=== PATIENT | female | born 2000 | race Caucasian/White ===

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

== ENCOUNTER 2022-06-26 16:38 | Outpatient (REF) | payer OTHER, MEDICAID, SELFPAY ==
[2022-06-27 10:12] LABS: Hepatitis C Ab w Rflx HCV PCR Negative (Negative)
[2022-06-27 10:54] LABS: HIV-1/2 Ag & Ab Screen Negative (Negative)
[2022-06-27 11:06] LABS: Syphilis Serology (RPR) Negative (Negative)
[2022-06-27 13:56] LABS: Chlamydia Result Negative (Negative); GC Result Negative (Negative)
== END 2022-06-26 16:39 | disposition home or self-care (01) ==
LOC: NCHCN 16:38
PROVIDERS: Visit Provider Nurse Practitioner Family
DX: Z11.3 Encounter for screening for infections with a predominantly sexual mode of transmission (principal); Z11.4 Encounter for screening for human immunodeficiency virus [HIV]; Z11.59 Encounter for screening for other viral diseases
CPT/HCPCS: 86803; 87389; 87491; 87591; 86592

== ENCOUNTER 2022-10-23 20:54 | Outpatient (REF) | payer OTHER, SELFPAY ==
[2022-10-25 13:43] LABS: Chlamydia Result Negative (Negative); GC Result Negative (Negative)
== END 2022-10-23 20:55 | disposition home or self-care (01) ==
LOC: LBN 20:54
PROVIDERS: Visit Provider Nurse Practitioner Family
DX: Z11.3 Encounter for screening for infections with a predominantly sexual mode of transmission (principal); N76.0 Acute vaginitis
CPT/HCPCS: 87491; 87591; 87480; 87510; 87660

== ENCOUNTER 2023-10-23 16:46 | Outpatient (REF) | payer OTHER, SELFPAY ==
[2023-10-23 20:03] LABS: Abs Immature Grans 0.02 10^3/uL (0.0-0.06); Absolute Basophil Count 0.02 10^3/uL (0.0-0.2); Absolute Eosinophil Count 0.04 10^3/uL (0.0-0.7); Absolute Lymphocyte Count 2.03 10^3/uL (1.2-3.4); Absolute Monocyte Count 0.48 10^3/uL (0.1-0.8); Absolute Neutrophil Count 4.44 10^3/uL (1.2-6.7); Basophils % 0.3 %; Eosinophils % 0.6 %; HCT 36.5 % (36.0-46.0); HGB 12.1 g/dL (11.2-15.7); Immature Grans % 0.3 %; Lymphocytes % 28.9 %; MCH 30.2 pg (27.0-33.0); MCHC 33.2 % (32.0-36.0); MCV 91 fL (80-95); Monocytes % 6.8 %; Neutrophils % 63.1 %; Platelet Count 171 10^3/uL (130-400); RBC 4.01 10^6/uL (3.93-5.22); RDW 12.4 % (11.7-14.6); RDW-SD 41.3 fL; WBC 7.03 10^3/uL (4.4-10.8)
[2023-10-23 20:37] LABS: ALT 25 U/L (14-59); AST 20 U/L (15-37); Albumin 4.3 g/dL (3.4-5.0); Alkaline Phosphatase 74 U/L (46-116); Anion Gap 8.7 mmol/L (3-11); BUN 10 mg/dL (7-18); Bilirubin, Total 1.09 mg/dL (0.2-1.0); CO2 26.3 mmol/L (21.0-32.0); CREATININE 0.9 mg/dL (0.55-1.02); Calcium 9.3 mg/dL (8.5-10.1); Chloride 105 mmol/L (98-107); Estimated GFR 93.28 (mL/min/1.73m2); FREE T4 1.22 ng/dL (0.76-1.46); Glucose 78 mg/dL (74-106); Potassium 4.1 mmol/L (3.5-5.1); Sodium 140 mmol/L (136-145); TSH 0.68 uIU/Ml (0.36-3.74)
== END 2023-10-23 16:47 | disposition home or self-care (01) ==
LOC: NCHCN 16:46
PROVIDERS: Visit Provider Nurse Practitioner Family
DX: R63.4 Abnormal weight loss (principal)
CPT/HCPCS: 80053; 84439; 84443; 85025

== ENCOUNTER 2024-02-04 18:15 | Outpatient (REF) | payer OTHER, SELFPAY ==
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
--- OUTSIDE RECORDS SUMMARY | 2024-02-04 18:16 | XMS_ITS | Referral Summary ---
Author Organization [facility] Address [address] [place] [address] Care Team Providers Care Order Picker Name Role Phone Vitaliy Fernandez DNP Primary Care Provider [phone] Encounters Date Type Department Care Team Description 01/07/2024 Refill [facility] - Main [place] [address] [place] [address] Kodi José MD Medications Refill from Last 3 Months Allergies No known active allergies Medications Medication Sig Dispensed Refills Start Date End Date Status FLUoxetine (PROZAC) 40 mg capsule Take 40 mg by mouth daily. Active UNABLE TO FIND Take 1 Tab by mouth daily. Med Name: control pills Active etonogestreL (NEXPLANON) 68 mg subdermal implant Insert 1 Each subdermally Once. Active buPROPion (WELLBUTRIN) 75 mg tablet Take 1 Tablet by mouth 3 times daily. Active lisdexamfetamine (VYVANSE) 10 mg capsule Take 1 Capsule by mouth daily. Daily Max: 10 mg Active latanoprost (XALATAN) 0.005 % ophthalmic solutionIndicatio ns:Secondary open-angle glaucoma of right eye INSTILL ONE DROP INTO THE RIGHT EYE AT BEDTIME( SHOULD LAST 40 DAYS) 2.5 mL 5 01/08/2024 Active dorzolamide-timol ol (COSOPT) 22.3-6.8 mg/mL ophthalmic solution INSTILL ONE DROP INTO THE RIGHT EYE TWO TIMES A DAY 10 mL 9 01/08/2024 Active brimonidine (ALPHAGAN) 0.2 % ophthalmic solution INSTILL ONE DROP INTO THE RIGHT EYE TWO TIMES A DAY 5 mL 6 01/08/2024 Active dorzolamide-timol ol (COSOPT) 22.3-6.8 mg/mL ophthalmic solution INSTILL ONE DROP INTO THE RIGHT EYE TWO TIMES A DAY 10 mL 9 03/28/2023 01/07/20 24 Discontinued(Reo rder) latanoprost (XALATAN) 0.005 % ophthalmic solutionIndicatio ns:Secondary open-angle glaucoma of right eye INSTILL ONE DROP INTO THE RIGHT EYE AT BEDTIME( SHOULD LAST 40 DAYS) 2.5 mL 5 03/28/2023 01/07/20 24 Discontinued(Reo rder) brimonidine (ALPHAGAN) 0.2 % ophthalmic solution INSTILL ONE DROP INTO THE RIGHT EYE TWO TIMES A DAY 5 mL 6 03/28/2023 01/07/20 24 Discontinued(Reo rder) Miscellaneous Medication - See Admin Instructions Place 1 Drop into both eyes 2 times daily. 1 Each 11 04/19/2023 01/07/20 24 Discontinued Social History Tobacco Use Types Packs/Day Years Used Date Smoking Tobacco: Never Smokeless Tobacco: Never Interpersonal Safety Answer Date Record ed Physically Hurt Never 11/16/2019 Verbally Threaten Not on file 11/16/2019 Sex and Gender Information Value Date Recorded Sex Assigned at Not on file Gender Identity Female 12/02/2020 13:22 EDT Sexual Orientation Not on file Plan of Treatment Upcoming Encounters Date Type Department Care Team (Late st Contact Info) Description 04/22/2024 13:15 EST Office Visit [facility] - [address] [id number] Abdulkadir Rhoades MD [address] [place] [address], [address] [place] [address] Procedures Procedure Name Priority Date/Time Associated Diagnosis Comments HEPATITIS C AB W REFLEX TO HCV RNA BY PCR Routine 06/26/2022 14:00 EDT from Last 3 Months or Most Recently Relevant to Health Maintenance Results * HEPATITIS C AB W REFLEX TO HCV RNA BY PCR (06/26/2022 14:00 EDT) Hep C Antibody Negative Negative 06/27/2022 10:08 EDT [facility] Blood VENOUS BLOOD / Unknown 06/26/2022 14:00 EDT 06/26/2022 20:57 EDT Provider Outr Resulting Lab CHEMISTRY & BLOOD GAS ORDERABLES [facility] [address] [place] [address] from Last 3 Months or Most Recently Relevant to Health Maintenance Care Teams Order Picker Relationship Specialty Start Date End Date Vitaliy Fernandez, [facility] [address] [place] [address] [place] [id number] PCP - General 12/02/20
--- OUTSIDE RECORDS SUMMARY | 2024-02-04 18:16 | XMS_ITS | Encounter Summary ---
Author Organization [facility] Address [address] [place] [address] Care Team Providers Care Senior Cytogenetic Technologist Name Role Phone Vitaliy Fernandez DNP Primary Care Provider [phone] Reason for Visit * Reason Onset Date Comments Medications Refill 01/07/2024 Encounter Details Date Type Department Care Team (Late st Contact Info) Description 01/07/2024 Refill [facility] Ophthalmology - [address] [phone] Kodi José MD 111 [facility], [address] [place] [address] Medications Refill Social History Tobacco Use Types Packs/Day Years [...] Dispensed Refills Start Date End Da te brimonidine (ALPHAGAN) 0.2 % ophthalmic solution INSTILL ONE DROP INTO THE RIGHT EYE TWO TIMES A DAY 5 mL 6 01/08/2024 dorzolamide-timolol (COSOPT) 22.3-6.8 mg/mL ophthalmic solution INSTILL ONE DROP INTO THE RIGHT EYE TWO TIMES A DAY 10 mL 9 01/08/2024 latanoprost (XALATAN) 0.005 % ophthalmic solutionIndications:Second paty open-angle glaucoma of right eye INSTILL ONE DROP INTO THE RIGHT EYE AT BEDTIME( SHOULD LAST 40 DAYS) 2.5 mL 5 01/08/2024 documented in this encounter Miscellaneous Notes * Telephone Encounter - DavisFarzana - 01/07/2024 3102 EDT Medication Refill Medication(s) Requested: latanoprost, dorzolamide, brimonidine. Pt wants to go back tot he 3 separate drops rather than the combined drop (bimatoprost) with is more expensive for her. Pharmacy: [facility] Is patient out of medication? No 30 day supply/ 90 day supply: 30 Follow up appointment: 04/22/23 Please remind the patient that it can take 24-48 hours for the med to be refilled, and to call the pharmacy to make sure the refill is available before driving there. documented in this encounter Plan of Treatment Upcoming Encounters Date Type Department Care Team (Late st Contact Info) Description 04/22/2024 13:15 EST Office Visit [facility] Ophthalmology - [address] [address] Abdulkadir Rhoades MD [address] [facility], [address] [place] [address] documented as of this encounter Visit Diagnoses Diagnosis Secondary open-angle glaucoma of right eye- Primary documented in this encounter Discontinued Medications Medication Sig Discontinue Reason Start Date End Da te Miscellaneous Medication - See Admin Instructions Place 1 Drop into both eyes 2 times daily. 04/19/2023 01/07/2024 dorzolamide-timolol (COSOPT) 22.3-6.8 mg/mL ophthalmic solution INSTILL ONE DROP INTO THE RIGHT EYE TWO TIMES A DAY Reorder 03/28/2023 01/07/2024 latanoprost (XALATAN) 0.005 % ophthalmic solutionIndications:Gurdeep durham open-angle glaucoma of right eye INSTILL ONE DROP INTO THE RIGHT EYE AT BEDTIME( SHOULD LAST 40 DAYS) Reorder 03/28/2023 01/07/2024 brimonidine (ALPHAGAN) 0.2 % ophthalmic solution INSTILL ONE DROP INTO THE RIGHT EYE TWO TIMES A DAY Reorder 03/28/2023 01/07/2024 documented as of this encounter Care Teams Senior Cytogenetic Technologist Relationship Specialty Start Date End Date Vitaliy Fernandez, [facility] [address] [place] [address] [place] [address] PCP - General 12/02/20 documented as of this encounter
--- OUTSIDE RECORDS SUMMARY | 2024-02-04 18:16 | XMS_ITS | Encounter Summary ---
Author Organization [facility] Address [address] [place] [address] Care Team Providers Care Dog Daycare Provider Name Role Phone Vitaliy Fernandez DNP Primary Care Provider [phone] Reason for Visit * Reason Onset Date Comments Medications Refill 04/10/2023 Encounter Details Date Type Department Care Team (Late st Contact Info) Description 04/10/2023 Refill [facility] Ophthalmology - [address] [phone] Kodi José MD 111 [facility], [address] [place] [address] Medications Refill Social History Tobacco [...] Dispensed Refills Start Date End Da te Miscellaneous Medication - See Admin Instructions Place 1 Drop into both eyes 2 times daily. 1 Each 04/19/2023 01/07/2024 documented in this encounter Miscellaneous Notes * Telephone Encounter - Quang Desir RN - 04/17/2023 1147 EST Per HAKEEM, this is fine. Call pharm. Vinod Desir RN 04/17/2023 11:49 * Telephone Encounter - Radha Nieto - 04/16/2023 0914 EST Pharmacy called to let us know they switched latanoprost to bimatoprost last year. They would like Dr José's permission to fill the compound with this ingredient. They will be [facility]ing a form [facility] and ask for the pharmacist * Telephone Encounter - Alcon Nolen RN - 04/10/[address] José to review. Alcon Nolen RN 04/10/2023 10:09 * Telephone Encounter - Farzana Cannon - 04/10/2023 0902 EST We prescribed a timolol/brimonidine/dorzolamide/latanoprost from [facility], but they don't make itwith latanoprost any more, they use bimatoprost 0.01% instead. Is this ok to make this change? documented in this encounter Plan of Treatment Upcoming Encounters Date Type Department Care Team (Late st Contact Info) Description 04/22/2024 13:15 EST Office Visit [facility] Ophthalmology - [facility] [address] [place] [address] Abdulkadir Rhoades MD [address] [facility], [address] [place] [address] documented as of this encounter Visit Diagnoses Not on filedocumented in this encounter Discontinued Medications Medication Sig Discontinue Reason Start Date End Da te timolo/brimon/dorzo/latan op/PF ([id number]-LA TANOPRO,PF,) 0.5 %-0.15 %- 2 %-0.005 % ophthalmic drops 1 drop to both eyes 2 x daily. 04/05/2023 04/19/2023 documented as of this encounter Care Teams Dog Daycare Provider Relationship Specialty Start Date End Date Vitaliy Fernandez, [facility] [address] [place] [id number] PCP - General 12/02/20 documented as of this encounter
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
--- OUTSIDE RECORDS SUMMARY | 2024-02-04 18:17 | XMS_ITS | Encounter Summary ---
Author Organization [facility] Address [address] [place] [address] Care Team Providers Care Rolloff Truck Driver Name Role Phone Vitaliy Fernandez DNP Primary Care Provider [phone] Encounter Details Date Type Department Care Team (Late st Contact Info) Description 06/26/2022 Lab Requisition [facility] Pathology & Laboratory Medicine - [address] [address] Outr Resulting Lab, Provider Social History Tobacco Use Types Packs/Day Years Used Date Smoking Tobacco: Never Smokeless Tobacco: Never Interpersonal Safety Answer Date Record ed Physically Hurt Never 11/16/2019 Verbally Threaten Not on file 11/16/2019 Sex and Gender Information Value Date Recorded Sex Assigned at Not on file Gender Identity Female 12/02/2020 13:22 EDT Sexual Orientation Not on file documented as of this encounter Plan of Treatment Upcoming Encounters Date Type Department Care Team (Late st Contact Info) Description 04/22/2024 13:15 EST Office Visit [facility] Ophthalmology - [address] [address] Abdulkadir Rhoades MD [address] [facility], [address] [place] [address] documented as of this encounter Procedures Procedure Name Priority Date/Time Associated Diagnosis Comments SYPHILIS SEROLOGY Routine 06/26/2022 14: 00 EDT HEPATITIS C AB W REFLEX TO HCV RNA BY PCR Routine 06/26/2022 14:00 EDT documented in this encounter Results * SYPHILIS SEROLOGY (06/26/2022 14:00 EDT) Syphilis Serology Negative Negative 06/27/2022 11:01 EDT [facility] Blood VENOUS BLOOD / Unknown 06/26/2022 14:00 EDT 06/26/2022 20:57 EDT Provider Outr Resulting Lab IMMUNOLOGY A ND SEROLOGY ORDERABLES Performing Organization Address [facility]/ZIP Co de Phone Number [facility] [address] [place] [address] * HEPATITIS C AB W REFLEX TO HCV RNA BY PCR (06/26/2022 14:00 EDT) Hep C Antibody Negative Negative 06/27/2022 10:08 EDT [facility] Blood VENOUS BLOOD / Unknown 06/26/2022 14:00 EDT 06/26/2022 20:57 EDT Provider Outr Resulting Lab CHEMISTRY & BLOOD GAS ORDERABLES Performing Organization Address City/[facility]/ZIP Co de Phone Number [facility] [address] [place] [address] documented in this encounter Visit Diagnoses Not on filedocumented in this encounter Care Teams Rolloff Truck Driver Relationship Specialty Start Date End Date Vitaliy Fernandez, [facility] [place] [address] PCP - General 12/02/20 documented as of this encounter
--- OUTSIDE RECORDS SUMMARY | 2024-02-04 18:17 | XMS_ITS | Encounter Summary ---
Author Organization [facility] Address [address] [place] [address] Care Team Providers Care Chenille Machine Operator Name Role Phone Vitaliy Fernandez DNP Primary Care Provider [phone] [phone] Reason for Visit * Reason Onset Date Comments Medications Refill 12/02/2020 Encounter Details Date Type Department Care Team (Late st Contact Info) Description 12/02/2020 Refill [facility] Ophthalmology - [address] [phone] Kodi José MD [address] [facility], [address] [place] [address] Medications Refill Social History Tobacco [...] Dispensed Refills Start Date End Da te latanoprost (XALATAN) 0.005 % ophthalmic solutionIndications:Second paty open-angle glaucoma of right eye Place 1 Drop into the right eye at bedtime. 1 Bottle 11 12/02/2020 05/26/2021 documented in this encounter Miscellaneous Notes * Telephone Encounter - Maribell Dc MA - 12/02/2020 1314 EDT Doctor: Kodi José MD Requested Medication(s): latanoprost Last appointment date: 05.30.20 Last appointment note regarding medication:latanoprost OD QHS Next appointment date: 01.11.21 * Telephone Encounter - Aime Patela - 12/02/2020 1306 EDT Medication Refill Medication(s) Requested: latanoprost (XALATAN) 0.005 % ophthalmic solution Pharmacy: [facility] Is patient out of medication? Yes 30 day supply/ 90 day supply: 30 Follow up appointment: Yes Please remind the patient that it can take 24-48 hours for the med to be refilled, and to call the pharmacy to make sure the refill is available before driving there. documented in this encounter Plan of Treatment Upcoming Encounters Date Type Department Care Team (Late st Contact Info) Description 04/22/2024 13:15 EST Office Visit [facility] Ophthalmology - [address] [address] Abdulkadir Rhoades MD [address] [facility], [address] [place] [address] documented as of this encounter Visit Diagnoses Diagnosis Secondary open-angle glaucoma of right eye- Primary documented in this encounter Discontinued Medications Medication Sig Discontinue Reason Start Date End Da te latanoprost (XALATAN) 0.005 % ophthalmic solutionIndications:Gurdeep durham open-angle glaucoma of right eye Place 1 Drop into the right eye at bedtime. Reorder 09/18/2019 12/02/2020 documented as of this encounter Care Teams Chenille Machine Operator Relationship Specialty Start Date End Date Vitaliy Fernandez, DNP [facility] [place] [address] PCP - General 12/02/20 documented as of this encounter
--- OUTSIDE RECORDS SUMMARY | 2024-02-04 18:17 | XMS_ITS | Encounter Summary ---
Author Organization [facility] Address [address] [place] [address] Care Team Providers Care Replenisher Name Role Phone None, Provider Primary Care Provider Unavailabl e Reason for Visit * Reason Comments Other Encounter Details Date Type Department Care Team (Late st Contact Info) Description 01/01/2020 Refill [facility]mology - [address] [address] Kodi José MD [address] [place] [address], [address] [place] [phone] Other Social History Tobacco Use Types Packs/Day Years [...] Dispensed Refills Start Date End Da te dorzolamide-timoloL (COSOPT) 22.3-6.8 mg/mL ophthalmic solution PLACE 1 DROP INTO THE RIGHT EYE TWICE DAILY 20 mL 3 01/01/2020 01/02/2021 documented in this encounter Miscellaneous Notes * Telephone Encounter - Maribell Dc MA - 01/01/2020 0823 EDT Doctor: Kodi José MD Requested Medication(s): cosopt Last appointment date: 09.18.19 Last appointment note regarding medication:dorz-timolol OD BID Next appointment date: overdue (nov 2019) documented in this encounter Plan of Treatment Upcoming Encounters Date Type Department Care Team (Late st Contact Info) Description 04/22/2024 13:15 EST Office Visit [facility] Ophthalmology - [address] [phone] Abdulkadir Rhoades MD [address] [place] [address], [address] [place] [address] documented as of this encounter Visit Diagnoses Not on filedocumented in this encounter Discontinued Medications Medication Sig Discontinue Reason Start Date End Da te dorzolamide-timoloL (COSOPT) 22.3-6.8 mg/mL ophthalmic solution Place 1 Drop into the right eye 2 times daily. 09/10/2019 01/01/2020 documented as of this encounter Care Teams Replenisher Relationship Specialty Start Date End Date None, Provider PCP - General 01/16/19 12/01/20 documented as of this encounter
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
--- OUTSIDE RECORDS SUMMARY | 2024-02-04 18:17 | XMS_ITS | Encounter Summary ---
Author Organization [facility] Address [address] [place] [address] Care Team Providers Care Roller Print Tender Name Role Phone Vitaliy Fernandez DNP Primary Care Provider [phone] Reason for Visit * Reason Comments Other Encounter Details Date Type Department Care Team (Late st Contact Info) Description 01/02/2021 Refill [facility] Ophthalmology - [address] [phone] Kodi José MD [address] [facility] [place], [address] [place] [address] Other Social History Tobacco Use Types Packs/Day [...] Dispensed Refills Start Date End Da te dorzolamide-timolol (COSOPT) 22.3-6.8 mg/mL ophthalmic solution INSTILL ONE DROP INTO THE RIGHT EYE TWO TIMES A DAY 10 mL 9 01/02/2021 01/04/2022 documented in this encounter Miscellaneous Notes * Telephone Encounter - Dao Maribell, MA - 01/02/2021 1343 EDT Doctor: Kodi José MD Requested Medication(s): cosopt Last appointment date: 05.30.20 Last appointment note regarding medication:dorz-timolol OD BID Next appointment date: 01.11.21 documented in this encounter Plan of Treatment Upcoming Encounters Date Type Department Care Team (Late st Contact Info) Description 04/22/2024 13:15 EST Office Visit [facility] Ophthalmology - [address] [phone] Abdulkadir Rhoades MD [address] [facility] [place], [address] [place] [phone] documented as of this encounter Visit Diagnoses Not on filedocumented in this encounter Discontinued Medications Medication Sig Discontinue Reason Start Date End Da te dorzolamide-timoloL (COSOPT) 22.3-6.8 mg/mL ophthalmic solution PLACE 1 DROP INTO THE RIGHT EYE TWICE DAILY 01/01/2020 01/02/2021 documented as of this encounter Care Teams Roller Print Tender Relationship Specialty Start Date End Date Vitaliy Fernandez, [place] [phone] PCP - General 12/02/20 documented as of this encounter
--- OUTSIDE RECORDS SUMMARY | 2024-02-04 18:17 | XMS_ITS | Encounter Summary ---
Author Organization [facility] Address [address] [place] [address] Care Team Providers Care Fur Stylist Name Role Phone Vitaliy Fernandez DNP Primary Care Provider [phone] Reason for Visit * Reason Onset Date Comments Medications Refill 01/16/2023 Encounter Details Date Type Department Care Team (Late st Contact Info) Description 01/16/2023 Refill [facility] Ophthalmology - [address] [phone] Kodi José MD [address] [facility], [address] [place] [address] Medications Refill Social History Tobacco [...] TWO TIMES A DAY 10 mL 9 01/16/2023 03/27/2023 documented in this encounter Miscellaneous Notes * Telephone Encounter - Quang Desir RN - 01/16/2023 1213 EDT Doctor: Kodi José MD Requested Medication(s): Dorzo-[place] Last appointment date: 07/26/2021 Last appointment note regarding medication: controlled on rx, again emphasized need for reliable rx-- F/U 6 M: IOP, HVF 24-2 FAST OU, OCT NFL OU. Drops: brimonidine OD BID, dorz-timolol OD BID, latanoprost OD QHS Next appointment date: 04/05/2023 Vinod Desir RN 01/16/2023 12:16 documented in this encounter Plan of Treatment Upcoming Encounters Date Type Department Care Team (Late st Contact Info) Description 04/22/2024 13:15 EST Office Visit [facility] Ophthalmology - [address] [phone] Abdulkadir Rhoades MD [address] [facility], [address] [place] [address] documented as of this encounter Visit Diagnoses Not on filedocumented in this encounter Discontinued Medications Medication Sig Discontinue Reason Start Date End Da te dorzolamide-timolol (COSOPT) 22.3-6.8 mg/mL ophthalmic solution INSTILL ONE DROP INTO THE RIGHT EYE TWO TIMES A DAY Reorder 01/04/2022 01/16/2023 documented as of this encounter Care Teams Fur Stylist Relationship Specialty Start Date End Date Vitaliy Fernandez, HYUN [facility] [place] [phone] PCP - General 12/02/20 documented as of this encounter
--- OUTSIDE RECORDS SUMMARY | 2024-02-04 18:17 | XMS_ITS | Encounter Summary ---
Author Organization [facility] Address [address] [place] [address] Care Team Providers Care Skip Load Driver Name Role Phone Vitaliy Fernandez DNP Primary Care Provider [phone] [phone] Reason for Visit * Reason Comments Other Encounter Details Date Type Department Care Team (Late st Contact Info) Description 07/25/2021 Refill [facility] Ophthalmology - [address] [phone] Kodi José MD 111 [facility], [address] [place] [address] Other Social History Tobacco Use [...] TWO TIMES A DAY 5 mL 6 07/26/2021 09/24/2022 documented in this encounter Miscellaneous Notes * Telephone Encounter - Alcon Nolen RN - 07/25/2021 1341 EDT Doctor: Kodi José MD Requested Medication(s): brimonidine Last appointment date: 05/26/2021 Last appointment note regarding medication:'brimonidine OD BID,' Next appointment date: 07/26/2021 Alcon Mcallister RN 07/25/2021 13:42 documented in this encounter Plan of Treatment Upcoming Encounters Date Type Department Care Team (Late st Contact Info) Description 04/22/2024 13:15 EST Office Visit [facility] Ophthalmology - [address] [phone] Abdulkadir Rhoades MD [address] [facility], [address] [place] [phone] documented as of this encounter Visit Diagnoses Not on filedocumented in this encounter Discontinued Medications Medication Sig Discontinue Reason Start Date End Da te brimonidine (ALPHAGAN) 0.2 % ophthalmic solution Place 1 Drop into the right eye 2 times daily. 05/30/2020 07/26/2021 documented as of this encounter Care Teams Skip Load Driver Relationship Specialty Start Date End Date Vitaliy Fernandez, [facility] [address] [place] [address] PCP - General 12/02/20 documented as of this encounter
--- OUTSIDE RECORDS SUMMARY | 2024-02-04 18:17 | XMS_ITS | Encounter Summary ---
Author Organization [facility] Address [address] [place] [address] Care Team Providers Care International Accountant Name Role Phone None, Provider Primary Care Provider Unavailabl e Reason for Visit * Reason Onset Date Comments Medications Refill 06/18/2019 Encounter Details Date Type Department Care Team (Late st Contact Info) Description 06/18/2019 Refill [facility] Ophthalmology - [address] [address] Kodi José MD [address] [place] [address], [address] [place] [phone] Medications Refill Social History Tobacco Use Types Packs/Day Years Used Date Smoking Tobacco: Never Smokeless Tobacco: Never Sex and Gender Information Value Date Recorded Sex Assigned at Not on file Gender Identity Female 12/02/2020 13:22 EDT Sexual Orientation Not on file documented as of this encounter Ordered Prescriptions Prescription Sig Dispensed Refills Start Date End Da te latanoprost (XALATAN) 0.005 % ophthalmic solution Place 1 Drop into the right eye at bedtime. 1 Bottle 6 06/18/2019 09/18/2019 dorzolamide-timoloL (COSOPT) 22.3-6.8 mg/mL ophthalmic solution Place 1 Drop into the right eye 2 times daily. 1 Bottle 5 06/18/2019 09/10/2019 documented in this encounter Miscellaneous Notes * Telephone Encounter - Galileo Deal - 06/18/2019 0835 EST dorzolamide-timolol (COSOPT) 22.3-6.8 mg/mL ophthalmic solution latanoprost (XALATAN) 0.005 % ophthalmic solution Medication Refill Medication(s) Requested: Pharmacy: [facility] in [facility] Is patient out of medication? Almost 30 day supply/ 90 day supply: 30 Follow up appointment: Cannot make an apt due to scheduling conflicts. Mother will call back when able to. Please remind the patient that it can take 24-48 hours for the med to be refilled, and to call the pharmacy to make sure the refill is available before driving there. documented in this encounter Plan of Treatment Upcoming Encounters Date Type Department Care Team (Late st Contact Info) Description 04/22/2024 13:15 EST Office Visit [facility] Ophthalmology - [address] [address] Abdulkadir Rhoades MD [address] [facility], [address] [place] [address] documented as of this encounter Visit Diagnoses Not on filedocumented in this encounter Discontinued Medications Medication Sig Discontinue Reason Start Date End Da te dorzolamide-timolol (COSOPT) 22.3-6.8 mg/mL ophthalmic solution Place 1 Drop into the right eye 2 times daily. Reorder 04/23/2019 06/18/2019 latanoprost (XALATAN) 0.005 % ophthalmic solution Place 1 Drop into the right eye at bedtime. Reorder 02/13/2019 06/18/2019 documented as of this encounter Care Teams International Accountant Relationship Specialty Start Date End Date None, Provider PCP - General 01/16/19 12/01/20 documented as of this encounter
--- OUTSIDE RECORDS SUMMARY | 2024-02-04 18:17 | XMS_ITS | Encounter Summary ---
Author Organization [facility] Address [address] [place] [address] Care Team Providers Care Apple Solutions Consultant Name Role Phone None, Provider Primary Care Provider Unavailabl e Reason for Visit * Reason Onset Date Comments Medications Refill 04/22/2019 Medications Refill 04/23/2019 Encounter Details Date Type Department Care Team (Late st Contact Info) Description 04/22/2019 Refill [facility] Ophthalmology - [address] [phone] Kodi José MD [address] [facility], [address] [place] [address] Medications Refill; Medications Refill Social History Tobacco Use Types [...] eye 2 times daily. 1 Bottle 5 04/23/2019 06/18/2019 documented in this encounter Miscellaneous Notes * Telephone Encounter - Alcon Mcallister RN - 04/23/2019 0957 EST Called [facility]. They had received it e-scribe. They will take a signed rx through fax. This was done. Transmission okay. Alcon Mcallister RN 04/23/2019 9:58 * Telephone Encounter - Alcon Mcallister RN - 04/23/2019 0713 EST Doctor: Kodi José MD Requested Medication(s): cosopt Last appointment date: 03/09/19 Last appointment note regarding medication:'dorz-timolol OD BID' Next appointment date: June 2019 Alcon Mcallister RN 04/23/2019 7:13 * Telephone Encounter - Amanda Lyons - 04/22/2019 1520 EST Patient is up at school in [place] but doesn't have appt set up yet and is running low on drops Medication Refill Medication(s) Requested: COPSOPT Pharmacy: [facility] Is patient out of medication? No 30 day supply/ 90 day supply: 30 Follow up appointment: Dr José referred her to Dr Upton in [place] where she goes to school Please remind the patient that it can take 24-48 hours for the med to be refilled, and to call the pharmacy to make sure the refill is available before driving there. documented in this encounter Plan of Treatment Upcoming Encounters Date Type Department Care Team (Late st Contact Info) Description 04/22/2024 13:15 EST Office Visit [facility] Ophthalmology - [address] [address] Abdulkadir Rhoades MD [address] [place] [address], [address] [place] [address] documented as of this encounter Visit Diagnoses Not on filedocumented in this encounter Discontinued Medications Medication Sig Discontinue Reason Start Date End Da te dorzolamide-timolol (COSOPT) 22.3-6.8 mg/mL ophthalmic solution Place 1 Drop into the right eye 2 times daily. Reorder 04/22/2019 documented as of this encounter Care Teams Apple Solutions Consultant Relationship Specialty Start Date End Date None, Provider PCP - General 01/16/19 12/01/20 documented as of this encounter
--- OUTSIDE RECORDS SUMMARY | 2024-02-04 18:17 | XMS_ITS | Encounter Summary ---
Author Organization [facility] Address [address] [place] [address] Care Team Providers Care Meteorological Equipment Repairer Name Role Phone None, Provider Primary Care Provider Vitaliy Asencio DNP Primary Care Provider [phone] [phone] Encounter Details Date Type Department Care Team (Late st Contact Info) Description 08/22/2019 Lab Requisition [facility] Pathology & Laboratory Medicine - [address] [address] Outr Resulting Lab, Provider Social History Tobacco [...] Info) Description 04/22/2024 13:15 EST Office Visit [facility] Ophthalmology - [address] [address] Abdulkadir Rhoades MD [address] [place] [address], [address] [place] [address] documented as of this encounter Procedures Procedure Name Priority Date/Time Associated Diagnosis Comments ZZCOVID-19 TEST [facility] PCR Today 08/22/2019 15:33 EDT COVID-19 TESTING Routine 08/22/2019 15:3 3 EDT documented in this encounter Results * COVID-19 TEST [facility] PCR (08/22/2019 15:33 EDT) Swab ENTIRE NASOPHARYNX / Unknown 08/22/2019 15:33 EDT 08/22/2019 21:00 EDT Provider Outr Resulting Lab MICROBIOLOGY - GENERAL ORDERABLES Performing Organization Address City/[facility] Co de Phone Number [facility] [address] [place] [address] * COVID-19 TESTING (08/22/2019 15:33 EDT) COVID-19 rt-PCR Result Negative Negative 08/23/2019 8:04 EDT [facility] Comment: Negative results do not preclude 2019-nCoV infection and should not be used as the sole basis for treatment or other patient management decisions. Negative results must be combined with clinical observations, patient history, and epidemiological information. This test has not been FDA cleared or approved. This test has been authorized by FDA under an EUA for use by authorized laboratories. This test has been authorized only for detection of nucleic acid from 2019-nCoV, not for any other viruses or pathogens. This test is only authorized for the duration of the declaration that circumstances exist justifying the authorization of emergency use of in vitro diagnostic tests for detection and/or diagnosis of 2019-nCoV under section 564(b)(1) of Act, 21 U.S.C ?? 360bbb-3(b) (1), unless the authorization is terminated or revoked sooner. Performed on the [employer] Fusion instrument Performing Lab [facility] Hospital Lab 08/23/2019 8:04 EDT [facility] Swab ENTIRE NASOPHARYNX / Unknown 08/22/2019 15:33 EDT 08/22/2019 21:00 EDT Provider Outr Resulting Lab MICROBIOLOGY - GENERAL ORDERABLES Performing Organization Address City/[facility]/ZIP Co de Phone Number [facility] [address] [place] [address] documented in this encounter Visit Diagnoses Not on filedocumented in this encounter Care Teams Meteorological Equipment Repairer Relationship Specialty Start Date End Date None, Provider PCP - General 01/16/19 12/01/20 Vitaliy Fernandez, [facility] [address] [place] [address] [place] [address] PCP - General 12/02/20 documented as of this encounter
--- OUTSIDE RECORDS SUMMARY | 2024-02-04 18:17 | XMS_ITS | Encounter Summary ---
Author Organization [facility] Address [address] [place] [address] Care Team Providers Care Tobacco Warehouse Agent Name Role Phone Vitaliy Fernandez DNP Primary Care Provider [phone] [phone] Reason for Visit * Reason Onset Date Comments Medications Refill 09/24/2022 Encounter Details Date Type Department Care Team (Late st Contact Info) Description 09/24/2022 Refill [facility] Ophthalmology - [address] [phone] Kodi José MD [address] [facility], [address] [place] [address] Medications Refill Social History Tobacco [...] TWO TIMES A DAY 5 mL 6 09/24/2022 03/27/2023 documented in this encounter Miscellaneous Notes * Telephone Encounter - Farzana Cannon - 10/01/2022 1441 EDT Scheduled with Arnav for 01/22/23. The patient has been notified. documented in this encounter Plan of Treatment Upcoming Encounters Date Type Department Care Team (Late st Contact Info) Description 04/22/2024 13:15 EST Office Visit [facility] Ophthalmology - [address] [phone] Abdulkadir Rhoades MD [address] [facility], [address] 5 [place] [address] documented as of this encounter Visit Diagnoses Not on filedocumented in this encounter Discontinued Medications Medication Sig Discontinue Reason Start Date End Da te brimonidine (ALPHAGAN) 0.2 % ophthalmic solution INSTILL ONE DROP INTO THE RIGHT EYE TWO TIMES A DAY Reorder 07/26/2021 09/24/2022 documented as of this encounter Care Teams Tobacco Warehouse Agent Relationship Specialty Start Date End Date Vitaliy Fernandez, [facility] [place] [address] PCP - General 12/02/20 documented as of this encounter
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
--- OUTSIDE RECORDS SUMMARY | 2024-02-04 18:17 | XMS_ITS | Encounter Summary ---
Author Organization [facility] Address [address] [place] [address] Care Team Providers Care Wallpaper Hanger Helper Name Role Phone None, Provider Primary Care Provider Laurie e Vitaliy Fernandez DNP Primary Care Provider [phone] [phone] Encounter Details Date Type Department Care Team (Late st Contact Info) Description 07/30/2020 Lab Requisition [facility] Pathology & Laboratory Medicine [address] [address] Vitaliy Fernandez, HYUN [address] [place] [address] Other specified disorders of the skin and subcutaneous tissue Social History Tobacco Use Types Packs/Day Years [...] 04/22/2024 13:15 EST Office Visit [facility] Ophthalmology - [address] [address] Abdulkadir Rhoades MD [address] [place] [address], [address] [place] [id number] documented as of this encounter Procedures Procedure Name Priority Date/Time Associated Diagnosis Comments SURGICAL PATHOLOGY Today 07/29/2020 8: 00 EDT Other specified disorders of the skin and subcutaneous tissue documented in this encounter Results * SURGICAL PATHOLOGY (07/29/2020 8:00 EDT) Final Diagnosis A. SKIN OF THIGH, RIGHT INTER, PUNCH BIOPSY: - Superficial perivascular dermatitis with red cell extravasation. See microscopic and comment. 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 A vasculitis is not seen. Clinical correlation is recommended 08/01/2020 15:15 [facility] Attestation By the signature below, the attending physician certifies that they have 1) personally conducted a gross and/or microscopic examination of the described specimen(s), and/or personally interpreted the results of laboratory testing of the described specimen(s), and 2) personally rendered or confirmed the above diagnosis. 08/01/2020 15:15 [facility] at 1515 Microscopic Description The punch biopsy shows scattered lymphocytes within the epidermis and within the superficial dermis, a mild perivascular lymphocytic infiltrate. Red cell extravasation is noted throughout the papillary dermis. A vasculitis is not identified. 08/01/2020 15:15 [facility] Clinical History Skin lesions, multiple; clinical diagnosis code: L98.8 08/01/2020 15:15 [facility] Gross Description A. Received in formalin labelled with proper patient identification (initials S, E) and punch-R inner thigh is a pale amin circular skin, 0.4 cm in diameter and excised to a depth of 0.4 cm. Entirely submitted intact in A1. IRENE HOUSER(ASCP) 08/01/2020 7:27 08/01/2020 15:15 [facility] Performing Lab [facility] 08/01/2020 15:15 [facility] Scanned Images 08/01/2020 15:15 EDT [facility] Tissue TISSUE SPECIMEN FROM SKIN / Unknown 07/29/2020 8:00 EDT 07/30/2020 14:48 EDT Vitaliy Smith DNP PATHOLOGY ORDERAB LES [facility] [address] [place] [address] documented in this encounter Visit Diagnoses Diagnosis Other specified disorders of the skin and subcutaneous tissue documented in this encounter Care Teams Wallpaper Hanger Helper Relationship Specialty Start Date End Date None, Provider PCP - General 01/16/19 12/01/20 Vtialiy Fernandez, HYUN [facility] [address] [place] [address] PCP - General 12/02/20 documented as of this encounter
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
--- OUTSIDE RECORDS SUMMARY | 2024-02-04 18:17 | XMS_ITS | Encounter Summary ---
Author Organization [facility] Address [address] [place] [address] Care Team Providers Care Court Supervisor Name Role Phone Vitaliy Fernandez DNP Primary Care Provider [phone] Reason for Visit * Reason Comments Medications Refill Encounter Details Date Type Department Care Team (Late st Contact Info) Description 01/03/[address] [phone] Kodi José MD [address] [facility], [address] [place] [address] Medications Refill Social History Tobacco [...] TWO TIMES A DAY 10 mL 9 01/04/2022 01/16/2023 documented in this encounter Plan of Treatment Upcoming Encounters Date Type Department Care Team (Late st Contact Info) Description 04/22/2024 13:15 EST Office Visit [address] [phone] Abdulkadir Rhoades MD [address] [facility], [address] [place] [address] documented as of this encounter Visit Diagnoses Not on filedocumented in this encounter Discontinued Medications Medication Sig Discontinue Reason Start Date End Da te dorzolamide-timolol (COSOPT) 22.3-6.8 mg/mL ophthalmic solution INSTILL ONE DROP INTO THE RIGHT EYE TWO TIMES A DAY 01/02/2021 01/04/2022 documented as of this encounter Care Teams Court Supervisor Relationship Specialty Start Date End Date Vitaliy Fernandez, [facility] [place] [phone] PCP - General 12/02/20 documented as of this encounter
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
--- OUTSIDE RECORDS SUMMARY | 2024-02-04 18:17 | XMS_ITS | Encounter Summary ---
Author Organization [facility] Address [address] [place] [address] Care Team Providers Care Damage Adjuster Name Role Phone Vitaliy Fernandez DNP Primary Care Provider [phone] [phone] Reason for Visit * Reason Comments Medications Refill Encounter Details Date Type Department Care Team (Late st Contact Info) Description 06/25/[address] [address] Kodi José MD [address] [place] [address], [address] [place] [address] Medications Refill Social History Tobacco [...] te latanoprost (XALATAN) 0.005 % ophthalmic solutionIndications:Gurdeep druham open-angle glaucoma of right eye INSTILL ONE DROP INTO THE RIGHT EYE AT BEDTIME( SHOULD LAST 40 DAYS) 2.5 mL 5 06/25/2022 03/27/2023 documented in this encounter Plan of Treatment Upcoming Encounters Date Type Department Care Team (Late st Contact Info) Description 04/22/2024 13:15 EST Office Visit [address] [place] [address] Abdulkadir Rhoades MD [address] [facility], [address] [place] [address] documented as of this encounter Visit Diagnoses Diagnosis Secondary open-angle glaucoma of right eye- Primary documented in this encounter Discontinued Medications Medication Sig Discontinue Reason Start Date End Da te latanoprost (XALATAN) 0.005 % ophthalmic solutionIndications:Gurdeep durham open-angle glaucoma of right eye Place 1 Drop into the right eye at bedtime. 05/26/2021 06/25/2022 documented as of this encounter Care Teams Damage Adjuster Relationship Specialty Start Date End Date Vitaliy Fernandez, [facility] [place] [address] PCP - General 12/02/20 documented as of this encounter
--- OUTSIDE RECORDS SUMMARY | 2024-02-04 18:17 | XMS_ITS | Encounter Summary ---
Author Organization [facility] Address [address] [place] [address] Care Team Providers Care Registered Nurse Behavioral Health Name Role Phone Vitaliy Fernandez DNP Primary Care Provider [phone] [phone] Encounter Details Date Type Department Care Team (Late st Contact Info) Description 06/26/2022 Lab Requisition [facility] Pathology & Laboratory Medicine - [address] [address] Outr Resulting Lab, Provider Social History Tobacco [...] Info) Description 04/22/2024 13:15 EST Office Visit [facility] Ophthalmology - [address] [phone] Abdulkadir Rhoades MD [address] [facility], [address] [place] [address] documented as of this encounter Procedures Procedure Name Priority Date/Time Associated Diagnosis Comments CHLAMYDIA/N. GONORRHOEAE AMPLIFIED NUCLEIC ACID Routine 06/26/2022 14:00 EDT documented in this encounter Results * CHLAMYDIA/N. GONORRHOEAE AMPLIFIED RNA (06/26/2022 14:00 EDT) Neisseria gonorrhoeae Result Negative Negative 06/27/2022 13:52 EDT [facility] Chlamydia trachomatis Result Negative Negative 06/27/2022 13:52 EDT [facility] Urine URINE / Unknown 06/26/2022 1 4:00 EDT 06/26/2022 20:58 EDT Narrative [facility] - 06/27/2022 13:52 EDT A first catch urine specimen is acceptable for detection of Gonorrhea and Chlamydia, but might detect up to 10% fewer infections when compared with vaginal and endocervical swab samples. Provider Outr Resulting Lab MICROBIOLOGY - GENERAL ORDERABLES [facility] [address] [place] [address] documented in this encounter Visit Diagnoses Not on filedocumented in this encounter Care Teams Registered Nurse Behavioral Health Relationship Specialty Start Date End Date Vitaliy Fernandez, DNP [facility] [place] [address] PCP - General 12/02/20 documented as of this encounter
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
--- OUTSIDE RECORDS SUMMARY | 2024-02-04 18:17 | XMS_ITS | Encounter Summary ---
Author Organization [facility] Address [address] [place] [address] Care Team Providers Care Motor And Generator Brush Maker Name Role Phone Vitaliy Fernandez DNP Primary Care Provider [phone] Reason for Visit * Reason Onset Date Comments Medications Refill 03/27/2023 Encounter Details Date Type Department Care Team (Late st Contact Info) Description 03/27/2023 Refill [facility] Ophthalmology - [address] [phone] Kodi José MD [address] [facility], [address] [place] [address] Medications Refill Social History Tobacco [...] TIMES A DAY 5 mL 6 03/28/2023 01/07/2024 latanoprost (XALATAN) 0.005 % ophthalmic solutionIndications:Gurdeep durham open-angle glaucoma of right eye INSTILL ONE DROP INTO THE RIGHT EYE AT BEDTIME( SHOULD LAST 40 DAYS) 2.5 mL 5 03/28/2023 01/07/2024 dorzolamide-timolol (COSOPT) 22.3-6.8 mg/mL ophthalmic solution INSTILL ONE DROP INTO THE RIGHT EYE TWO TIMES A DAY 10 mL 9 03/28/2023 01/07/2024 documented in this encounter Miscellaneous Notes * Telephone Encounter - RamseyMariela zelayah - 03/27/2023 1608 EST Pt stated that she is coming home for [place] but her mom picked up her meds at [facility] pharmacy and mailed them to her at school. The mail is delayed and she won't get her meds before she leaves to come home. Wants meds called to [place] pharmacy. I advised that it's possible that insurance may not pay since she just had refill and patient understood. Please call patient if there is a problem. Mary Mustafa 03/27/2023 16:12 documented in this encounter Plan of Treatment Upcoming Encounters Date Type Department Care Team (Late st Contact Info) Description 04/22/2024 13:15 EST Office Visit [facility] Ophthalmology - [address] [address] Abdulkadir Rhoades MD [address] [facility], [address] [place] [address] documented as of this encounter Visit Diagnoses Diagnosis Secondary open-angle glaucoma of right eye- Primary documented in this encounter Discontinued Medications Medication Sig Discontinue Reason Start Date End Da te latanoprost (XALATAN) 0.005 % ophthalmic solutionIndications:Seco ndary open-angle glaucoma of right eye INSTILL ONE DROP INTO THE RIGHT EYE AT BEDTIME( SHOULD LAST 40 DAYS) Reorder 06/25/2022 03/27/2023 brimonidine (ALPHAGAN) 0.2 % ophthalmic solution INSTILL ONE DROP INTO THE RIGHT EYE TWO TIMES A DAY Reorder 09/24/2022 03/27/2023 dorzolamide-timolol (COSOPT) 22.3-6.8 mg/mL ophthalmic solution INSTILL ONE DROP INTO THE RIGHT EYE TWO TIMES A DAY Reorder 01/16/2023 03/27/2023 documented as of this encounter Care Teams Motor And Generator Brush Maker Relationship Specialty Start Date End Date Vitaliy Fernandez, [facility] [place] [address] PCP - General 12/02/20 documented as of this encounter
--- OUTSIDE RECORDS SUMMARY | 2024-02-04 18:17 | XMS_ITS | Encounter Summary ---
Author Organization [facility] Address [address] [place] [address] Care Team Providers Care Senior Administrative Support Name Role Phone None, Provider Primary Care Provider Unavailabl e Reason for Visit * Reason Comments Follow-up Encounter Details Date Type Department Care Team (Late st Contact Info) Description 09/18/2019 13:30 EDT Office Visit [facility] Ophthalmology - [address] [address] Kodi José MD [address] [facility], [address] 5 [place] [phone] Social History Tobacco Use Types Packs/Day Years [...] right eye at bedtime. 1 Bottle 11 09/18/2019 12/02/2020 documented in this encounter Progress Notes * Kodi José MD - 09/18/2019 1330 EDT Chief Complaint Patient presents with ??? Follow-up Comments Secondary glaucoma right eye. Using dorz/[place] BID right and latan QHS right eye (did not use last night). Occ headaches but no vision changes. HPI :The patient is a 19 y.o. female Physician HPI: Pt denies recent vision change Has occasional headache but this seems different from aching during high eye pressure no recent flashes -- no new floaters denies eye redness -- denies eye pain denies recent eye trauma -- added latanoprost as directed Physician ROS: Pt denies diabetes -- Pt denies new cough / shortness of breath / fever Right Eye: Blurred Vision Left Eye: NL Visual Aid: Current Rx Age Location: Right eye Pain: 0 - No pain Quality: Severity: Duration: Months Timing: Constant Lasts: Continuous Context: vision has been blurred but stable Modifying factors: occ headaches Associated Signs & Symptoms: Attestation: ROS Constitutional: NL ENT/Mouth NL Cardiovascular: NL Respiratory: NL Gastrointestinal: NL Genitourinary: NL Musculoskeletal: NL Integumentary: NL Neurologic: NL Psychiatric: NL Endocrine: NL Hematologic: Immunologic: Certified Vehicle Fire Investigator: Exposures: None Other: Attestation: Allergies include: Patient has no known allergies. There is no problem list on file for this patient. Outpatient Medications Marked as Taking for the 09/18/19 encounter (Office Visit) with Kodi José MD Medication Sig ??? dorzolamide-timoloL (COSOPT) 22.3-6.8 mg/mL ophthalmic solution Place 1 Drop into the right eye2 times daily. ??? FLUoxetine (PROZAC) 40 mg capsule Take 40 mg by mouth daily. ??? latanoprost (XALATAN) 0.005 % ophthalmic solution Place 1 Drop into the right eye at bedtime. ??? UNABLE TO FIND Take 1 Tab by mouth daily. Med Name: control pills No past medical history on file. No [...] - Linear) Right Left Dist sc 20/40 -2 20/20 Tonometry (Applanation, 13:37) Right Left Pressure 20 20 Neuro/Psych Oriented x3: Yes Mood/Affect: Normal Slit [...] Gibran Fox MD -- OCT NFL OU today (10/02) R eye thinner inferior x 2 tests vs baseline, L eye stable -- mac OCT today (10/02) with possible inferior loss of ganglion cell layer in R eye -- HVF 24-2 OU(03/03) with early or moderate superior arcuate R eye, full L eye -- pt now relocated to [place], so will cont care here, D/W pt, good IOP today but concern for change on OCT, need to check VF, possibly needs increased rx -- F/U 2 M: IOP, HVF 24-2 OD only, OCT NFL OU [phone] (Joann Chow) ON: 0.5, thinner inf / 0.25, oblong -- ? APD OD Tmax: 46 / XX CCT: 523 / 530 Gonio: 360* recession, superior dialysis / open to CBB (03/03) VF: early-moderate superior arc / full (03/03) OCT: 76 / 91 (10/02) Surg: none Drops: dorz-timolol OD BID, latanoprost [...] Info) Description 04/22/2024 13:15 EST Office Visit [facility] Ophthalmology - [facility] [address] [place], [place] [address] Abdulkadir Rhoades MD [address] [facility], [address] [place] [address] documented as of this encounter Procedures Procedure Name Priority Date/Time Associated Diagnosis Comments OCT, OPTIC NERVE - OU - BOTH EYES Routine 09/18/2019 13:45 EDT Secondary open-angle glaucoma of right eye documented in this encounter Results * OCT, OPTIC NERVE - OU - BOTH EYES (09/18/2019 13:45 EDT) Narrative [facility] - 09/18/2019 13:45 EDT See interpretation / assessment in main note. Kodi José MD OPHTH TOMOGRAPHY [facility] documented in this encounter Visit Diagnoses Diagnosis Secondary open-angle glaucoma of right eye- Primary documented in this encounter Discontinued Medications Medication Sig Discontinue Reason Start Date End Da te latanoprost (XALATAN) 0.005 % ophthalmic solution Place 1 Drop into the right eye at bedtime. Reorder 06/18/2019 09/18/2019 documented as of this encounter Historical Medications * This list may reflect changes made after this encounter. Medication Sig Dispensed Refills Start Date End Date UNABLE TO FIND Take 1 Tab by mouth daily. Med Name: control pills FLUoxetine (PROZAC) 40 mg capsule Take 40 mg by mouth daily. added in this encounter Eye Exam Visual Acuity (Snellen - Linear) Right eye Left eye Dist sc 20/40 -2 20/20 Tonometry (Applanation, 13:37) Right eye Left eye Pressure 20 20 Pupils Dark Light APD Right eye 7 5 None Left eye 7 5 None Extraocular Movement Right eye Left eye [...] Normal Normal Vessels Normal Normal Care Teams Senior Administrative Support Relationship Specialty Start Date End Date None, Provider PCP - General 01/16/19 12/01/20 documented as of this encounter
--- OUTSIDE RECORDS SUMMARY | 2024-02-04 18:17 | XMS_ITS | Encounter Summary ---
Author Organization [facility] Address [address] [place] [address] Care Team Providers Care Molder Shoulder Pad Name Role Phone None, Provider Primary Care Provider Unavailabl e Reason for Visit * Reason Onset Date Comments Medications Refill 09/10/2019 Encounter Details Date Type Department Care Team (Late st Contact Info) Description 09/10/2019 Refill [facility] Ophthalmology - [address] [address] Kodi José MD [address] [place] [address], [address] [place] [phone] Medications Refill Social History Tobacco Use Types [...] right eye 2 times daily. 1 Bottle 11 09/10/2019 01/01/2020 documented in this encounter Miscellaneous Notes * Telephone Encounter - Alcon Mcallister RN - 09/10/2019 1012 EDT Doctor: Kodi José MD Requested Medication(s): Dorzolamide-timolol Last appointment date: 03/09/19 Last appointment note regarding medication:'dorz-timolol OD BID,' Next appointment date: 09/18/2019 Alcon Mcallister RN 09/10/2019 10:12 * Telephone Encounter - Peng Vivas - 09/10/2019 1009 EDT Medication Refill Medication(s) Requested: Dorzolamide- timolol (Cosopt) Pharmacy: [facility] Is patient out of medication? Yes, 3days ago... 30 day supply/ 90 day supply: 90 Follow up appointment: 09/18/19 Please remind the patient that it can take 24-48 hours for the med to be refilled, and to call the pharmacy to make sure the refill is available before driving there. documented in this encounter Plan of Treatment Upcoming Encounters Date Type Department Care Team (Late st Contact Info) Description 04/22/2024 13:15 EST Office Visit [facility] Ophthalmology - [address] [phone] Abdulkadir Rhoades MD [address] [facility], [address] [place] [address] documented as of this encounter Visit Diagnoses Not on filedocumented in this encounter Discontinued Medications Medication Sig Discontinue Reason Start Date End Da te dorzolamide-timoloL (COSOPT) 22.3-6.8 mg/mL ophthalmic solution Place 1 Drop into the right eye 2 times daily. Reorder 06/18/2019 09/10/2019 documented as of this encounter Care Teams Molder Shoulder Pad Relationship Specialty Start Date End Date None, Provider PCP - General 01/16/19 12/01/20 documented as of this encounter
--- OUTSIDE RECORDS SUMMARY | 2024-02-04 18:17 | XMS_ITS | Encounter Summary ---
Author Organization [facility] Address [address] [place] [address] Care Team Providers Care Help Desk Supervisor Name Role Phone Vitaliy Fernandez DNP Primary Care Provider [phone] Encounter Details Date Type Department Care Team (Late st Contact Info) Description 10/24/2022 Lab Requisition [facility] Pathology & Laboratory Medicine - [address] [address] Outr Resulting Lab, Provider Social History Tobacco [...] Info) Description 04/22/2024 13:15 EST Office Visit [facility] Ophthalmology - [address] [phone] Abdulkadir Rhoades MD [address] [facility], [address] [place] [address] documented as of this encounter Procedures Procedure Name Priority Date/Time Associated Diagnosis Comments CHLAMYDIA/N. GONORRHOEAE AMPLIFIED NUCLEIC ACID Routine 10/23/2022 16:15 EDT documented in this encounter Results * CHLAMYDIA/N. GONORRHOEAE AMPLIFIED RNA (10/23/2022 16:15 EDT) Neisseria gonorrhoeae Result Negative Negative 10/25/2022 13:36 EDT [facility] Chlamydia trachomatis Result Negative Negative 10/25/2022 13:36 EDT [facility] Swab ENTIRE VAGINA / Unknown 10/23/2022 16:15 EDT 10/24/2022 17:33 EDT Provider Outr Resulting Lab MICROBIOLOGY - GENERAL ORDERABLES [facility] [address] [place] [address] documented in this encounter Visit Diagnoses Not on filedocumented in this encounter Care Teams Help Desk Supervisor Relationship Specialty Start Date End Date Vitaliy Fernandez, [facility] [place] [phone] PCP - General 12/02/20 documented as of this encounter
--- OUTSIDE RECORDS SUMMARY | 2024-02-04 18:17 | XMS_ITS | Encounter Summary ---
Author Organization [facility] Address [address] [place] [address] Care Team Providers Care Corporate Scheduler Name Role Phone Vitaliy Fernandez DNP Primary Care Provider [phone] Encounter Details Date Type Department Care Team (Late st Contact Info) Description 06/26/2022 Lab Requisition [facility] Pathology & Laboratory Medicine - [address] [address] Outr Resulting Lab, Provider Social History Tobacco [...] Info) Description 04/22/2024 13:15 EST Office Visit [facility] Ophthalmology - [address] [address] Abdulkadir Rhoades MD [address] [facility], [address] [place] [address] documented as of this encounter Procedures Procedure Name Priority Date/Time Associated Diagnosis Comments HIV 1/2 ANTIGEN AND ANTIBODY, 4TH GENERATION Routine 06/26/2022 14:00 EDT documented in this encounter Results * HIV 1/2 ANTIGEN AND ANTIBODY, 4TH GENERATION (06/26/2022 14:00 EDT) HIV 1 and 2 Antibody/p24 Antigen, 4th Generation Negative Negative 06/27/2022 10:49 EDT [facility] Comment:If acute HIV-1 infec tion is suspected in a high risk patient, submit plasma specimen for HIV-1 RNA quantitation test. Blood VENOUS BLOOD / Unknown 06/26/2022 14:00 EDT 06/26/2022 20:57 EDT Narrative [facility] - 06/27/2022 10:49 EDT Fourth Generation assay performed on the Notifoaur XPT. Provider Outr Resulting Lab IMMUNOLOGY A ND SEROLOGY ORDERABLES [facility] [address] [place] [address] documented in this encounter Visit Diagnoses Not on filedocumented in this encounter Care Teams Corporate Scheduler Relationship Specialty Start Date End Date Vitaliy Fernandez, DNP [address] [place] [place] [address] [address] [facility] [address] PCP - General 12/02/20 documented as of this encounter
[2024-02-04 20:37] LABS: Abs Immature Grans 0.02 10^3/uL (0.0-0.06); Absolute Basophil Count 0.03 10^3/uL (0.0-0.2); Absolute Eosinophil Count 0.06 10^3/uL (0.0-0.7); Absolute Lymphocyte Count 2.23 10^3/uL (1.2-3.4); Absolute Monocyte Count 0.55 10^3/uL (0.1-0.8); Absolute Neutrophil Count 4.78 10^3/uL (1.2-6.7); Basophils % 0.4 %; Eosinophils % 0.8 %; Immature Grans % 0.3 %; Lymphocytes % 29.1 %; MCHC 33.3 % (32.0-36.0); MCV 90 fL (80-95); Monocytes % 7.2 %; Neutrophils % 62.2 %; Platelet Count 227 10^3/uL (130-400); RBC 4.34 10^6/uL (3.93-5.22); RDW 12.2 % (11.7-14.6); RDW-SD 40.6 fL; WBC 7.67 10^3/uL (4.4-10.8)
[2024-02-04 21:02] LABS: ALT 25 U/L (14-59); AST 25 U/L (15-37); Albumin 4.1 g/dL (3.4-5.0); Alkaline Phosphatase 87 U/L (46-116); Anion Gap 6.3 mmol/L (3-11); BUN 14 mg/dL (7-18); CO2 28.7 mmol/L (21.0-32.0); CREATININE 0.7 mg/dL (0.55-1.02); Calcium 9.3 mg/dL (8.5-10.1); Chloride 106 mmol/L (98-107); Estimated GFR 125.33 (mL/min/1.73m2); FREE T4 1.01 ng/dL (0.76-1.46); Glucose 81 mg/dL (74-106); Magnesium 2.1 mg/dL (1.8-2.4); PHOSPHORUS 4.1 mg/dL (2.6-4.7); Potassium 4.5 mmol/L (3.5-5.1); Sodium 141 mmol/L (136-145); Total Protein 7.4 g/dL (6.4-8.2)
[2024-02-05 17:38] LABS: CRP, High Sensitivity <0.34 mg/L (See Note)
[2024-02-05 19:45] LABS: HIV-1/2 Ag & Ab Screen Negative (Negative)
[2024-02-05 19:51] LABS: Hepatitis C Ab w Rflx HCV PCR Negative (Negative)
[2024-02-06 09:47] LABS: Syphilis Serology (RPR) Negative (Negative)
[2024-02-06 12:47] LABS: Chlamydia Result Negative (Negative); GC Result Negative (Negative)
== END 2024-02-04 18:16 ==
LOC: NCHCN 18:15
PROVIDERS: Visit Provider Nurse Practitioner Family
DX: R63.4 Abnormal weight loss (principal)
CPT/HCPCS: 80053; 86141; 86803; 87389; 87491; 87591; 83735; 84100; 84439; 84443; 85025; 86592

== ENCOUNTER 2024-09-22 16:54 | Outpatient (REF) | payer SELFPAY ==
--- NOTE | 2024-09-22 13:20 | PAPFT_PTH ---
PATIENT: Emelina Vidal LOC: [facility] U#:[id number] AGE/SX: 24/F ROOM: RE09/22/[address]: Zully Lopez MD : 2000 BED: DIS: 09/22/2024 SPEC #: [id number] RECD: 09/22/24 17:04 STATUS: MAGDALENA REQ #: [id number] THAI: 09/22/24 13:[address]: Zully Lopez DEPT: [facility], [facility] Cytology RECD BY: Leyla Arita ENTERED: 09/22/24 17:04 SP TYPE: PAPFT OTHR DR: Unknown,Unknown Tissues: 1 - CX/ENDOCX FOR PAP SMEARS Procedures: PAP THIN PREP/U[facility] Screening Comments: [id number]
[2024-09-23 13:36] LABS: Chlamydia Result Negative (Negative); GC Result Negative (Negative)
== END 2024-09-22 16:55 | disposition home or self-care (01) ==
LOC: LBN 16:54
PROVIDERS: Visit Provider Obstetrics & Gynecology
DX: Z70.8 Other sex counseling (principal); Z12.4 Encounter for screening for malignant neoplasm of cervix
CPT/HCPCS: 87491; 87591; 88142; 87624